=== PATIENT | male | born 1965 | race Caucasian/White ===

== ENCOUNTER → 2018-07-12 | Outpatient (CLI) | payer MEDICARE, OTHER ==
[~2018-07-12] MED LIST: LISI2.5T2 PO; LITH300C3 PO; VENL-193 PO; ZOLP10TA7 PO
== END | disposition home or self-care (01) ==
LOC: LABMN 11:35
DX: F25.0 Schizoaffective disorder, bipolar type (principal)

== ENCOUNTER 2019-11-21 14:25 | Emergency (ER) | payer MEDICARE, OTHER ==
[~2019-11-21] VITALS: Ht 185.4 cm; Wt 122.7 kg
[~2019-11-21 14:25] MED LIST changes: +AMLO-257 PO; +ARIP15TA2 PO; +BACI28.42 TP; +BENZ1TAB10 PO; +CARB-188 AU; +DIPH25CA85 PO; +FURO20 PO; +GABA-1181 PO; +LISI-662 PO; -LISI2.5T2 PO; -LITH300C3 PO; +POTA20TA83 PO; +PROP10TA73 PO; -VENL-193 PO; -ZOLP10TA7 PO
[2019-11-21 15:22] LABS: EOSINOPHILS % (AUTO) 0.4 % (1.0-6.0); HEMATOCRIT 42.1 % (41-53); HEMOGLOBIN 13.9 g/dL (13.5-17.5); LYMPHOCYTES # (AUTO) 2.9 K/uL (1.0-4.8); LYMPHOCYTES % (AUTO) 50.7 % (22.0-44.0); MEAN CORPUSCULAR HEMOGLOBIN 29.3 pg (26.0-34.0); MEAN CORPUSCULAR HGB CONC 33.1 G/dL (31.0-37.0); MEAN CORPUSCULAR VOLUME 89 fL (80-100); MONOCYTES # (AUTO) 0.3 K/uL (0.1-1.0); MONOCYTES % (AUTO) 5.8 % (2.0-9.0); NEUTROPHILS # (AUTO) 2.4 K/uL (1.8-7.7); NEUTROPHILS % (AUTO) 42.1 % (40.0-70.0); PLATELET COUNT (AUTO) 419 K/uL (150-450); RED BLOOD CELL COUNT(AUTO) 4.75 MIL/uL (4.50-5.90); RED CELL DISTRIBUTION WIDTH 17.6 % (11.5-14.5)
[2019-11-21 15:38] LABS: ANION GAP 11 mmol/L (8-16); CALCIUM, TOTAL 8.8 mg/dL (8.8-10.5); CARBON DIOXIDE 26 mmol/L (22-29); CHLORIDE 101 mmol/L (98-107); CREATININE 0.94 mg/dL (0.60-1.30); GLOMERULAR FILTR. RATE CALC > 60 mL/min (>60); GLUCOSE,RANDOM 110 mg/dL (70-110); POTASSIUM 3.5 mmol/L (3.5-5.1); SODIUM SERUM 138 mmol/L (136-145); UREA NITROGEN, BLOOD 15 mg/dL (7-18)
[2019-11-21 15:41] LABS: ALANINE AMINOTRANSFERASE 32 U/L (12-78); ALBUMIN 3.9 g/dL (3.4-5.0); ALKALINE PHOSPHATASE 85 U/L (46-116); ASPARTATE AMINOTRANSFERASE 24 U/L (15-37); BILIRUBIN,TOTAL 0.3 mg/dL (0.1-1.0); TOTAL PROTEIN, SERUM 8.4 g/dL (6.4-8.2)
[2019-11-21 16:58] LABS: AMPHET/METH SCREEN,URINE NEGATIVE (NEGATIVE); BARBITURATE SCREEN, URINE NEGATIVE (NEGATIVE); BENZODIAZEPINES SCREEN,URINE NEGATIVE (NEGATIVE); CANNABINOID SCREEN,URINE NEGATIVE (NEGATIVE); COCAINE SCREEN,URINE NEGATIVE (NEGATIVE); METHADONE SCREEN, URINE NEGATIVE (NEGATIVE); OPIATE SCREEN,URINE NEGATIVE (NEGATIVE); PHENCYCLIDINE SCREEN,URINE NEGATIVE (NEGATIVE)
[2019-11-21] MEDS ORDERED: IBUPROFEN 600 MG TABLET PO ONE (18:45)
[2019-11-21] MEDS ORDERED: LORazepam 1 MG TABLET PO ONE (18:45)
[2019-11-21 18:51] VITALS: BP 143/83
== END 2019-11-21 19:17 | disposition home or self-care (01) ==
LOC: EMS 14:28
DX: F32.9 Major depressive disorder, single episode, unspecified (principal); F10.129 Alcohol abuse with intoxication, unspecified; F17.210 Nicotine dependence, cigarettes, uncomplicated; Z88.8 Allergy status to other drugs, medicaments and biological substances; Z79.899 Other long term (current) drug therapy; Y90.8 Blood alcohol level of 240 mg/100 ml or more
CPT/HCPCS: 36415; 80053; 80307; 85025; 99284; G0480

== ENCOUNTER 2020-11-01 11:00 | Inpatient (IN) | payer MEDICARE, MEDICAID ==
[~2020-11-01] VITALS: Ht 185.4 cm; Wt 129.0 kg
[~2020-11-01 11:00] MED LIST changes: -ARIP15TA2 PO; +ARIP15TA27 PO; -BACI28.42 TP; +BACI28OI28 TP; -LISI-662 PO; +LISI-894 PO
[2020-11-01] MEDS ORDERED: LORazepam 1 MG TABLET PO ONE (12:00)
[2020-11-01] MEDS ORDERED: ONDANSETRON HCL 4 MG TABLET PO ONE (12:15)
[2020-11-01 13:03] LABS: BASOPHILS % (AUTO) 0.6 % (0.0-2.0); EOSINOPHILS % (AUTO) 3.7 % (1.0-6.0); LYMPHOCYTES # (AUTO) 1.6 K/uL (1.0-4.8); MEAN CORPUSCULAR HEMOGLOBIN 29.8 pg (26.0-34.0); MEAN CORPUSCULAR HGB CONC 33.2 G/dL (31.0-37.0); MEAN CORPUSCULAR VOLUME 90 fL (80-100); MONOCYTES # (AUTO) 0.5 K/uL (0.1-1.0); MONOCYTES % (AUTO) 10.3 % (2.0-9.0); NEUTROPHILS # (AUTO) 2.4 K/uL (1.8-7.7); NEUTROPHILS % (AUTO) 51.4 % (40.0-70.0); PLATELET COUNT (AUTO) 243 K/uL (150-450); RED BLOOD CELL COUNT(AUTO) 5.02 MIL/uL (4.50-5.90)
[2020-11-01 13:20] LABS: ALANINE AMINOTRANSFERASE 48 U/L (12-78); ALBUMIN 3.8 g/dL (3.4-5.0); ALKALINE PHOSPHATASE 140 U/L (46-116); ANION GAP 13 mmol/L (8-16); ASPARTATE AMINOTRANSFERASE 47 U/L (15-37); BILIRUBIN,TOTAL 0.5 mg/dL (0.1-1.0); CALCIUM, TOTAL 8.7 mg/dL (8.8-10.5); CARBON DIOXIDE 26 mmol/L (22-29); CHLORIDE 105 mmol/L (98-107); GLOMERULAR FILTR. RATE CALC > 60 mL/min (>60); GLUCOSE,RANDOM 155 mg/dL (70-110); SODIUM SERUM 144 mmol/L (136-145); TOTAL PROTEIN, SERUM 8.5 g/dL (6.4-8.2); UREA NITROGEN, BLOOD 10 mg/dL (7-18)
[2020-11-01 13:29] LABS: GLUCOMETER DEV NAME(LOC) ERT.5; GLUCOSE,POINT OF CARE 108 MG/DL (70-110)
[2020-11-01 13:29] LABS: POTASSIUM 2.8 mmol/L (3.5-5.1)
[2020-11-01] MEDS ORDERED: LORazepam 2 MG TABLET PO ONE (13:45)
[2020-11-01] MEDS ORDERED: POTASSIUM CHLORIDE 20 MEQ ER TABLET PO ONE ×2 (13:45→21:00)
[2020-11-01 14:06] LABS: AMPHET/METH SCREEN,URINE NEGATIVE (NEGATIVE); BARBITURATE SCREEN, URINE NEGATIVE (NEGATIVE); BENZODIAZEPINES SCREEN,URINE NEGATIVE (NEGATIVE); CANNABINOID SCREEN,URINE NEGATIVE (NEGATIVE); COCAINE SCREEN,URINE NEGATIVE (NEGATIVE); METHADONE SCREEN, URINE NEGATIVE (NEGATIVE); OPIATE SCREEN,URINE NEGATIVE (NEGATIVE); PHENCYCLIDINE SCREEN,URINE NEGATIVE (NEGATIVE)
[2020-11-01 14:32] LABS: COVID AG,FIA SOURCE NASOPHARYNGEAL
[2020-11-01] MEDS: HALOPERIDOL 5 MG TABLET PO PRN (17:35)
[2020-11-01] MEDS: LORazepam 2 MG TABLET PO PRN (18:45)
[2020-11-01 20:10] VITALS: BP 200/100
[2020-11-01] MEDS ORDERED: CloNIDine HCL 0.1 MG TABLET PO PRN (20:45)
[2020-11-01] MEDS ORDERED: LISINOPRIL 20 MG TABLET PO ONE (21:00)
[2020-11-01 21:14] VITALS: BP 160/100
[2020-11-01] MEDS ORDERED: ACETAMINOPHEN 325 MG TABLET PO PRN (21:45)
[2020-11-01] MEDS ORDERED: -PHARMACY VACCINE NOTE- MISC ONE (22:00)
[2020-11-02] VITALS (7 sets, daily range): BP systolic 130–208; BP diastolic 61–126
[2020-11-02] MEDS: LORazepam 2 MG TABLET PO PRN ×2 (01:28→16:26)
[2020-11-02] MEDS ORDERED: MAG HYDROX/AL HYDROX/SIMETH ES 30 ML SUSPENSION UDCUP PO PRN (06:30)
[2020-11-02] MEDS ORDERED: ALBUTEROL SULFATE HFA 90 MCG/PUFF 8 GM INHALER IH PRN (06:30)
[2020-11-02] MEDS ORDERED: GuaiFENesin/D-METHORPHAN [SUGAR-FREE] 200-20MG/10 ML SYRUP UDCUP PO PRN (06:30)
[2020-11-02] MEDS ORDERED: NICOTINE 14 MG/24 HOUR PATCH TD PRN (06:30)
[2020-11-02] MEDS ORDERED: ONDANSETRON HCL 4 MG TABLET PO PRN (06:30)
[2020-11-02] MEDS ORDERED: MAGNESIUM HYDROXIDE SUSPENSION 30 ML UDCUP PO PRN (06:30)
[2020-11-02] MEDS ORDERED: LOPERAMIDE HCL 2 MG CAPSULE PO PRN (06:30)
[2020-11-02] MEDS ORDERED: ACETAMINOPHEN 325 MG TABLET PO PRN (06:30)
[2020-11-02] MEDS ORDERED: DOCUSATE SODIUM 100 MG CAPSULE PO PRN (06:30)
[2020-11-02] MEDS ORDERED: PETROLATUM,WHITE 28 GM JELLY TP PRN (06:30)
[2020-11-02] MEDS ORDERED: IBUPROFEN 400 MG TABLET PO PRN (06:30)
[2020-11-02 07:12] LABS: HEMOGLOBIN A1C 5.6 % (3.8-5.6)
[2020-11-02 07:17] LABS: CHOL/HDL RATIO 4.7 (4.2-7.3); POTASSIUM 3.4 mmol/L (3.5-5.1)
[2020-11-02] MEDS: LISINOPRIL 20 MG TABLET PO SCH (08:42)
[2020-11-02] MEDS: GABAPENTIN 300 MG CAPSULE PO SCH (16:10)
[2020-11-02] MEDS: PROPRANOLOL HCL 10 MG TABLET PO SCH (16:10)
[2020-11-02] MEDS: ZOLPIDEM TARTRATE 10 MG TABLET PO PRN (20:51)
[2020-11-02] MEDS: CloNIDine HCL 0.1 MG TABLET PO PRN (23:44)
[2020-11-03] MEDS: LORazepam 2 MG TABLET PO PRN ×3 (00:48→16:10)
[2020-11-03 02:00] VITALS: BP 160/90
[2020-11-03 08:00] VITALS: BP 170/101
[2020-11-03] MEDS ORDERED: POTASSIUM CHLORIDE 20 MEQ ER TABLET PO ONE (08:00)
[2020-11-03] MEDS: LISINOPRIL 20 MG TABLET PO SCH (08:20)
[2020-11-03] MEDS: GABAPENTIN 300 MG CAPSULE PO SCH ×3 (08:20→16:10)
[2020-11-03] MEDS: PROPRANOLOL HCL 10 MG TABLET PO SCH ×2 (08:20→16:10)
[2020-11-03] MEDS: FUROSEMIDE 20 MG TABLET PO SCH (08:22)
[2020-11-03] MEDS ORDERED: TraMADol HCL 50 MG TABLET PO PRN (08:30)
[2020-11-03] MEDS: BENZTROPINE MESYLATE 1 MG TABLET PO SCH (08:36)
[2020-11-03] MEDS: ARIPiprazole 15 MG TABLET PO SCH (08:36)
[2020-11-03] MEDS: DiphenhydrAMINE HCL 25 MG CAPSULE PO SCH (08:36)
[2020-11-03] MEDS: ACETAMINOPHEN 325 MG TABLET PO PRN (08:41)
[2020-11-03] MEDS ORDERED: LISINOPRIL 20 MG TABLET PO ONE (09:00)
[2020-11-03 10:00] VITALS: BP 164/97
[2020-11-03] MEDS: FLUTICASONE PROPIONATE 50 MCG/SPRAY 16 GM NASAL SPRAY NASAL SCH ×2 (13:05→16:10)
[2020-11-03 16:13] VITALS: BP 139/63
[2020-11-03] MEDS: HydrOXYzine PAMOATE 50 MG CAPSULE PO SCH (20:05)
[2020-11-03 20:21] VITALS: BP 135/72
[2020-11-03] MEDS: TraMADol HCL 50 MG TABLET PO PRN (20:24)
[2020-11-03] MEDS: ZOLPIDEM TARTRATE 10 MG TABLET PO PRN (21:35)
[2020-11-03] MEDS: CloNIDine HCL 0.1 MG TABLET PO PRN (23:59)
[2020-11-04] MEDS: ACETAMINOPHEN 325 MG TABLET PO PRN (00:02)
[2020-11-04 00:22] VITALS: BP 187/118
[2020-11-04] MEDS: LORazepam 2 MG TABLET PO PRN ×2 (00:38→08:08)
[2020-11-04 02:00] VITALS: BP 168/91
[2020-11-04] MEDS: HALOPERIDOL 5 MG TABLET PO PRN (03:07)
[2020-11-04 06:49] VITALS: BP 153/76
[2020-11-04] MEDS: TraMADol HCL 50 MG TABLET PO PRN (06:52)
[2020-11-04] MEDS: PROPRANOLOL HCL 10 MG TABLET PO SCH (08:07)
[2020-11-04] MEDS: FUROSEMIDE 20 MG TABLET PO SCH (08:07)
[2020-11-04] MEDS: HydrOXYzine PAMOATE 50 MG CAPSULE PO SCH (08:07)
[2020-11-04] MEDS: FLUTICASONE PROPIONATE 50 MCG/SPRAY 16 GM NASAL SPRAY NASAL SCH (08:07)
[2020-11-04] MEDS: ARIPiprazole 15 MG TABLET PO SCH (08:07)
[2020-11-04] MEDS: GABAPENTIN 300 MG CAPSULE PO SCH (08:08)
[2020-11-04] MEDS: DiphenhydrAMINE HCL 25 MG CAPSULE PO SCH (08:08)
[2020-11-04] MEDS: BENZTROPINE MESYLATE 1 MG TABLET PO SCH (08:09)
[2020-11-04] MEDS ORDERED: LISINOPRIL 20 MG TABLET PO SCH (09:00)
[2020-11-04] MEDS ORDERED: ATOMOXETINE HCL 40 MG CAPSULE PO SCH (09:00)
[2020-11-04] MEDS ORDERED: POTASSIUM CHLORIDE 10 MEQ ER TABLET PO SCH (09:15)
[2020-11-04] MEDS ORDERED: POTASSIUM CHLORIDE 8 MEQ ER TABLET PO SCH (09:34)
[2020-11-04] MEDS ORDERED: ATOM40CA9 PO (09:47)
[2020-11-04] MEDS ORDERED: HYDR50CA9 PO (09:49)
[2020-11-04] MEDS ORDERED: POTA-92 PO (09:50)
== END 2020-11-04 10:05 | disposition home or self-care (01) | DRG 885 ==
LOC: EMS 11:00 → B2X 17:25
DX: F31.4 Bipolar disorder, current episode depressed, severe, without psychotic features (principal); I11.0 Hypertensive heart disease with heart failure; T51.0X1A Toxic effect of ethanol, accidental (unintentional), initial encounter; R45.851 Suicidal ideations; E11.9 Type 2 diabetes mellitus without complications; E87.6 Hypokalemia; F10.20 Alcohol dependence, uncomplicated; F20.9 Schizophrenia, unspecified; F41.9 Anxiety disorder, unspecified; I50.9 Heart failure, unspecified; J45.909 Unspecified asthma, uncomplicated; F90.9 Attention-deficit hyperactivity disorder, unspecified type; F98.8 Other specified behavioral and emotional disorders with onset usually occurring in childhood and adolescence; Y90.4 Blood alcohol level of 80-99 mg/100 ml; Z79.899 Other long term (current) drug therapy; Z87.891 Personal history of nicotine dependence; Z91.19 Patient's noncompliance with other medical treatment and regimen; Y92.89 Other specified places as the place of occurrence of the external cause; Z88.8 Allergy status to other drugs, medicaments and biological substances; Z20.822 Contact with and (suspected) exposure to COVID-19
CPT/HCPCS: 80053; 80061; 82962; 83036; 84132; 85025; 99285; G0480; J3535; Q0162

== ENCOUNTER 2024-11-17 12:06 | Inpatient (IN) | payer MEDICARE, OTHER ==
[~2024-11-17] VITALS: Ht 180.3 cm; Wt 92.4 kg
[~2024-11-17 12:06] MED LIST changes: -AMLO-257 PO; -ARIP15TA27 PO; +ATOM40CA9 PO; -BACI28OI28 TP; -BENZ1TAB10 PO; -CARB-188 AU; -FURO20 PO; +FURO20TA5 PO; +HYDR50CA7 PO; +POTA-92 PO; -POTA20TA83 PO
[2024-11-17] MEDS ORDERED: SODIUM CHLORIDE 0.9% 1,900 ML IV ONE (13:00)
[2024-11-17] MEDS ORDERED: SODIUM CHLORIDE 0.9% 1,000 ML IV ONE (13:00)
[2024-11-17 13:18] LABS: PLATELET COUNT (AUTO) 486 K/uL (150-450); RED BLOOD CELL COUNT(AUTO) 3.64 MIL/uL (4.50-5.90); RED CELL DISTRIBUTION WIDTH 13.4 % (11.5-14.5); WHITE BLOOD COUNT (AUTO) 14.7 K/uL (4.5-11.0)
[2024-11-17 13:30] LABS: CALCIUM, TOTAL 8.6 mg/dL (8.8-10.5); CREATININE 0.49 mg/dL (0.60-1.30); GLOMERULAR FILTR. RATE CALC > 60 mL/min (>60); GLUCOSE,RANDOM 97 mg/dL (70-110); SODIUM SERUM 139 mmol/L (136-145); UREA NITROGEN, BLOOD 11 mg/dL (7-18)
[2024-11-17 13:33] LABS: ASPARTATE AMINOTRANSFERASE 25 U/L (15-37); CREATINE KINASE, TOTAL ONLY 88 U/L (39-308); TOTAL PROTEIN, SERUM 7.5 g/dL (6.4-8.2)
[2024-11-17 13:37] LABS: LACTIC ACID 0.8 mmol/L (0.4-2.0)
[2024-11-17 13:40] LABS: TROPONIN I-HIGH SENSITIVITY 8 ng/L (<76)
[2024-11-17] MEDS ORDERED: MANNITOL 20%-100 GM/500 ML 500 ML IV ONE (14:45)
[2024-11-17] MEDS ORDERED: ROCURONIUM BROMIDE 10 MG/ML 5 ML VIAL ONE (14:48)
[2024-11-17] MEDS ORDERED: ETOMIDATE 2 MG/ML 10 ML VIAL ONE (14:48)
[2024-11-17 15:00] VITALS: PULSE 82; RESP 16; O2SAT 99
[2024-11-17] MEDS: PROPOFOL 1000 MG/ISO-OSM 100 ML IV PRN (15:23)
[2024-11-17] MEDS: FentaNYL CIT 1000MCG/0.9% NACL 100 ML IV PRN (15:24)
[2024-11-17 15:31] VITALS: PULSE 95; RESP 16; O2SAT 100
[2024-11-17] MEDS: DEXAMETHASONE SOD PHOS 4 MG/ML 5 ML VIAL IVP ONE (15:34)
[2024-11-17] MEDS: SODIUM CHLORIDE IV ONE (15:42)
[2024-11-17] MEDS: CefTRIAXone 1 GM/DEXTROSE 50 ML IV ONE (16:16)
[2024-11-17] MEDS: MIDAZOLAM HCL 100 MG in SODIUM CHLORIDE 0.9% 180 ML IV PRN (17:01)
[2024-11-17 17:08] LABS: ABG BASE EXCESS 2.8 mmol/L (-2.0-3.0); ABG CARBOXYHEMOGLOBIN 0.1 % (0.5-1.5); ABG HCO3 26.9 mmol/L (21.0-28.0); ABG METHEMOGLOBIN 1.2 % (0.0-1.5); ABG OXYGEN CONTENT 12.6 mL/dL (15.0-23.0); ABG OXYGEN SATURATION 99.7 % (94.0-98.0); ABG OXYHEMOGLOBIN 98.4 % (94.0-98.0); ABG PCO2 36 mmHg (32.0-48.0); ABG PH 7.477 (7.350-7.450); ABG TOTAL HEMOGLOBIN 8.4 G/dL (13.5-17.5); FRACTIONATED INSPIRED OXYGEN 100.0 % (21-100.0); SOURCE, BLOOD GAS ARTERIAL; TEMPERATURE, FAHRENHEIT, BG 99.0 FAHREN (96.0-98.6)
[2024-11-17 17:09] LABS: ALLEN TEST, BLOOD GAS POS; O2 DEVICE,BLOOD GAS VENTILATOR (ROOM AIR); PO2, ARTERIAL BG 354.2 mmHg (83.0-108.0); SITE, BLOOD GAS LFT BRACHIAL
[2024-11-17 17:10] LABS: PATIENT RATE, BG 16.0 min.; PEEP,BG 5 cm H2O; SET RATE, BG 16.0 min.; VT, ABG 580 ml
[2024-11-17] MEDS: MANNITOL IV ONE (17:57)
[2024-11-17 18:05] LABS: APPEARANCE,URINE CLEAR (CLEAR); GLUCOSE, URINE (UA) NEGATIVE (NEGATIVE); LEUKOCYTE ESTERASE ,URINE NEGATIVE (NEGATIVE); NITRATE,URINE NEGATIVE (NEGATIVE); OCCULT BLOOD,URINE NEGATIVE (NEGATIVE); PH,URINE DRUG SCREEN 7.5 (5.0-8.0); SPECIFIC GRAVITIY, URINE 1.011 (1.003-1.030)
[2024-11-17 18:12] LABS: ALCOHOL, URINE DRUG SCREEN NEGATIVE (NEGATIVE); AMPHET/METH SCREEN,URINE NEGATIVE (NEGATIVE); BARBITURATE SCREEN, URINE NEGATIVE (NEGATIVE); CANNABINOID SCREEN,URINE NEGATIVE (NEGATIVE); COCAINE SCREEN,URINE NEGATIVE (NEGATIVE); METHADONE SCREEN, URINE NEGATIVE (NEGATIVE)
[2024-11-17] MEDS ORDERED: GADOTERATE MEGLUMINE 10 MMOL/20 ML VIAL IVP ONE (18:25)
[2024-11-17] MEDS ORDERED: NOREPINEPHRINE 8 MG/0.9 % NACL 250 ML IV ONE (18:43)
[2024-11-17] MEDS: NOREPINEPHRINE 8 MG/0.9 % NACL 250 ML IV PRN (18:53)
[2024-11-17 18:55] VITALS: PULSE 60; RESP 16; O2SAT 100
[2024-11-17] MEDS: DOPamine 400MG/D5W[STANDARD] 250 ML IV PRN (19:14)
[2024-11-17] MEDS ORDERED: MAGNESIUM HYDROXIDE SUSPENSION 30 ML UDCUP PO PRN (21:00)
[2024-11-17] MEDS ORDERED: ALBUTEROL SULFATE 2.5 MG/0.5 ML NEB SOLUTION NEB PRN (21:00)
[2024-11-17] MEDS ORDERED: IPRATROPIUM BROMIDE 0.5 MG/2.5 ML NEB SOLUTION NEB PRN (21:00)
[2024-11-17] MEDS ORDERED: BISACODYL 10 MG RECTAL RECTAL SUPPOSITORY PR PRN (21:00)
[2024-11-17] MEDS ORDERED: ZOLPIDEM TARTRATE 5 MG TABLET PO PRN (21:00)
[2024-11-17] MEDS ORDERED: ACETAMINOPHEN 325 MG TABLET PO PRN (21:00)
[2024-11-17] MEDS ORDERED: ONDANSETRON HCL 4 MG/2 ML VIAL IVP PRN (21:00)
[2024-11-17] MEDS: DOCUSATE SODIUM 100 MG CAPSULE PO SCH (21:00)
[2024-11-17] MEDS: PIPERACILLIN/TAZO 3.375 GM/D5W 50 ML IV SCH (21:36)
[2024-11-17 22:22] VITALS: PULSE 67; RESP 16; O2SAT 100
[2024-11-17 22:46] LABS: GLUCOMETER DEV NAME(LOC) ER.7; GLUCOSE,POINT OF CARE 150 MG/DL (70-110)
[2024-11-17 23:30] VITALS: BP 118/50; PULSE 53; RESP 16; TEMP 97.5; O2SAT 100
[2024-11-17] MEDS ORDERED: SODIUM CHLORIDE 0.9% 250 ML IV ONE (23:52)
[2024-11-18] VITALS (14 sets, daily range): BP systolic 115–149; BP diastolic 67–79; PULSE 45–99; RESP 16; TEMP 97.1–98.2; O2SAT 99–100
[2024-11-18] MEDS: HEPARIN SODIUM,PORCINE 5,000 UNITS/ML VIAL SQ SCH (00:34)
[2024-11-18] MEDS ORDERED: POTASSIUM CHLORIDE 20 MEQ ER TABLET PO PRN (00:45)
[2024-11-18] MEDS: DEXAMETHASONE SOD PHOS 4 MG/ML VIAL IVP SCH (01:12)
[2024-11-18] MEDS: POTASSIUM CHL 10 MEQ/WATER 50 ML IV PRN (01:12)
[2024-11-18] MEDS ORDERED: FentaNYL CIT 1000MCG/0.9% NACL 100 ML IV ONE (05:32)
[2024-11-18 05:45] LABS: GLUCOMETER DEV NAME(LOC) ICUN.6; GLUCOSE,POINT OF CARE 139 MG/DL (70-110)
[2024-11-18] MEDS: FentaNYL CIT 1000MCG/0.9% NACL 100 ML IV PRN (05:46)
[2024-11-18 06:13] LABS: PLATELET COUNT (AUTO) 552 K/uL (150-450); RED BLOOD CELL COUNT(AUTO) 3.48 MIL/uL (4.50-5.90); RED CELL DISTRIBUTION WIDTH 13.3 % (11.5-14.5); WHITE BLOOD COUNT (AUTO) 9.5 K/uL (4.5-11.0)
[2024-11-18 06:31] LABS: CALCIUM, TOTAL 8.7 mg/dL (8.8-10.5); CREATININE 0.62 mg/dL (0.60-1.30); GLOMERULAR FILTR. RATE CALC > 60 mL/min (>60); GLUCOSE,RANDOM 133 mg/dL (70-110); SODIUM SERUM 139 mmol/L (136-145); UREA NITROGEN, BLOOD 10 mg/dL (7-18)
[2024-11-18 06:43] LABS: PHOSPHORUS 3.5 mg/dL (2.5-4.9)
[2024-11-18 06:45] LABS: GLUCOMETER DEV NAME(LOC) ICU.S7; GLUCOSE,POINT OF CARE 153 MG/DL (70-110)
[2024-11-18] MEDS: PANTOPRAZOLE SODIUM 40 MG/VIAL IVP SCH (08:12)
[2024-11-18] MEDS: DOPamine 400MG/D5W[STANDARD] 250 ML IV PRN (10:10)
[2024-11-18] MEDS: PROPOFOL 1000 MG/ISO-OSM 100 ML IV PRN (15:01)
[2024-11-19] VITALS (15 sets, daily range): BP systolic 102–136; BP diastolic 61–73; PULSE 48–58; RESP 16; TEMP 94.4–97.5; O2SAT 98–100
[2024-11-19 05:58] LABS: PLATELET COUNT (AUTO) 433 K/uL (150-450); RED BLOOD CELL COUNT(AUTO) 3.51 MIL/uL (4.50-5.90); RED CELL DISTRIBUTION WIDTH 13.5 % (11.5-14.5); WHITE BLOOD COUNT (AUTO) 11.0 K/uL (4.5-11.0)
[2024-11-19 06:05] LABS: CALCIUM, TOTAL 8.7 mg/dL (8.8-10.5); CREATININE 0.86 mg/dL (0.60-1.30); GLOMERULAR FILTR. RATE CALC > 60 mL/min (>60); GLUCOSE,RANDOM 110 mg/dL (70-110); SODIUM SERUM 137 mmol/L (136-145); UREA NITROGEN, BLOOD 27 mg/dL (7-18)
[2024-11-19 06:07] LABS: PHOSPHORUS 4.2 mg/dL (2.5-4.9)
[2024-11-19] MEDS: MIDAZOLAM HCL 100 MG in SODIUM CHLORIDE 0.9% 180 ML IV PRN (07:43)
[2024-11-19] MEDS ORDERED: DEXTROSE 50%-WATER 25 GM/50 ML SYRINGE IVP PRN (08:15)
[2024-11-19 12:01] LABS: GLUCOMETER DEV NAME(LOC) ICU.S7; GLUCOSE,POINT OF CARE 100 MG/DL (70-110)
[2024-11-19] MEDS ORDERED: GADOTERATE MEGLUMINE 10 MMOL/20 ML VIAL IVP ONE (15:24)
[2024-11-20] VITALS (8 sets, daily range): BP systolic 122–165; BP diastolic 45–84; PULSE 47–88; RESP 12–19; TEMP 97.1–97.8; O2SAT 95–100
[2024-11-20 00:01] LABS: GLUCOMETER DEV NAME(LOC) ICU.S7; GLUCOSE,POINT OF CARE 111 MG/DL (70-110)
[2024-11-20 06:01] LABS: PLATELET COUNT (AUTO) 438 K/uL (150-450); RED BLOOD CELL COUNT(AUTO) 3.51 MIL/uL (4.50-5.90); RED CELL DISTRIBUTION WIDTH 13.5 % (11.5-14.5); WHITE BLOOD COUNT (AUTO) 10.6 K/uL (4.5-11.0)
[2024-11-20 06:06] LABS: GLUCOMETER DEV NAME(LOC) ICU.S7; GLUCOSE,POINT OF CARE 108 MG/DL (70-110)
[2024-11-20 06:10] LABS: CALCIUM, TOTAL 8.7 mg/dL (8.8-10.5); CREATININE 0.53 mg/dL (0.60-1.30); GLOMERULAR FILTR. RATE CALC > 60 mL/min (>60); GLUCOSE,RANDOM 105 mg/dL (70-110); SODIUM SERUM 139 mmol/L (136-145); UREA NITROGEN, BLOOD 34 mg/dL (7-18)
[2024-11-20 06:48] LABS: ABG BASE EXCESS 3.6 mmol/L (-2.0-3.0); ABG CARBOXYHEMOGLOBIN 0.3 % (0.5-1.5); ABG HCO3 27.7 mmol/L (21.0-28.0); ABG METHEMOGLOBIN 0.3 % (0.0-1.5); ABG OXYGEN CONTENT 14.3 mL/dL (15.0-23.0); ABG OXYGEN SATURATION 98.4 % (94.0-98.0); ABG OXYHEMOGLOBIN 97.8 % (94.0-98.0); ABG PCO2 36 mmHg (32.0-48.0); ABG PH 7.496 (7.350-7.450); ABG TOTAL HEMOGLOBIN 10.2 G/dL (13.5-17.5); FRACTIONATED INSPIRED OXYGEN 32.0 % (21-100.0); PO2, ARTERIAL BG 119.0 mmHg (83.0-108.0); SOURCE, BLOOD GAS ARTERIAL; TEMPERATURE, FAHRENHEIT, BG 97.5 FAHREN (96.0-98.6)
[2024-11-20 06:49] LABS: ABG A-A DIFF O2 68.0 mmHg (10-20.0); ALLEN TEST, BLOOD GAS Positive; FLOW, BLOOD GAS 3.00 L/min (0.00-15.00); O2 DEVICE,BLOOD GAS CANNULA (ROOM AIR); PATIENT RATE, BG 14.0 min.; SITE, BLOOD GAS LFT RADIAL
[2024-11-20] MEDS: DEXMEDETOMIDINE 400 MCG/NS 100 ML IV PRN (09:55)
[2024-11-20 12:46] LABS: GLUCOMETER DEV NAME(LOC) ICU.S7; GLUCOSE,POINT OF CARE 116 MG/DL (70-110)
[2024-11-20] MEDS: LORazepam 2 MG/ML VIAL IVP PRN (14:16)
[2024-11-20] MEDS: LORazepam 2 MG/ML VIAL IVP ONE (16:41)
[2024-11-20] MEDS: METOPROLOL TARTRATE 5 MG/5 ML VIAL IVP ONE (17:40)
[2024-11-20 18:51] LABS: GLUCOMETER DEV NAME(LOC) ICU.S7; GLUCOSE,POINT OF CARE 110 MG/DL (70-110)
[2024-11-20] MEDS ORDERED: SODIUM CHLORIDE 0.9% 500 ML IV ONE (21:17)
[2024-11-21] VITALS: BP 175/85; PULSE 75; PULSE 84; RESP 17; TEMP 98.3; O2SAT 95
[2024-11-21 00:21] LABS: GLUCOMETER DEV NAME(LOC) ICUN.6; GLUCOSE,POINT OF CARE 109 MG/DL (70-110)
[2024-11-21] MEDS: MORPHINE SULFATE 4 MG/ML SYRINGE IVP PRN (01:47)
[2024-11-21 04:00] VITALS: BP 156/85; PULSE 68; PULSE 85; RESP 15; TEMP 97.3; O2SAT 99
[2024-11-21 06:21] LABS: GLUCOMETER DEV NAME(LOC) ICU.S7; GLUCOSE,POINT OF CARE 103 MG/DL (70-110)
[2024-11-21 08:00] VITALS: BP 197/105; PULSE 89; RESP 9; TEMP 98.2; O2SAT 98
[2024-11-21 11:45] LABS: GLUCOMETER DEV NAME(LOC) ICUN.6; GLUCOSE,POINT OF CARE 92 MG/DL (70-110)
[2024-11-21 12:00] VITALS: BP 155/90; PULSE 101; RESP 16; TEMP 98.7; O2SAT 98
[2024-11-21 16:00] VITALS: BP 172/108; PULSE 97; RESP 19; TEMP 98.6; O2SAT 98
[2024-11-21] MEDS: METOPROLOL TARTRATE 5 MG/5 ML VIAL IVP SCH (16:14)
[2024-11-21 20:00] VITALS: BP 156/85; PULSE 89; RESP 25; TEMP 98.6; O2SAT 96
[2024-11-22] VITALS (9 sets, daily range): BP systolic 123–165; BP diastolic 56–95; PULSE 60–97; RESP 11–23; TEMP 97.3–98.8; O2SAT 98–100
[2024-11-22 00:16] LABS: GLUCOMETER DEV NAME(LOC) ICU.S7; GLUCOSE,POINT OF CARE 96 MG/DL (70-110)
[2024-11-22 05:56] LABS: GLUCOMETER DEV NAME(LOC) ICU.S7; GLUCOSE,POINT OF CARE 110 MG/DL (70-110)
[2024-11-22 06:00] LABS: PLATELET COUNT (AUTO) 515 K/uL (150-450); RED BLOOD CELL COUNT(AUTO) 4.17 MIL/uL (4.50-5.90); RED CELL DISTRIBUTION WIDTH 13.6 % (11.5-14.5); WHITE BLOOD COUNT (AUTO) 13.3 K/uL (4.5-11.0)
[2024-11-22 06:12] LABS: CALCIUM, TOTAL 9.1 mg/dL (8.8-10.5); CREATININE 0.47 mg/dL (0.60-1.30); GLOMERULAR FILTR. RATE CALC > 60 mL/min (>60); GLUCOSE,RANDOM 101 mg/dL (70-110); SODIUM SERUM 138 mmol/L (136-145); UREA NITROGEN, BLOOD 21 mg/dL (7-18)
[2024-11-22] MEDS: HYDROCODONE/ACETAMINOPHEN 5-325 MG TABLET PO PRN (12:10)
[2024-11-22 12:51] LABS: GLUCOMETER DEV NAME(LOC) ICU.S7; GLUCOSE,POINT OF CARE 99 MG/DL (70-110)
[2024-11-22 17:45] LABS: GLUCOMETER DEV NAME(LOC) ICUN.6; GLUCOSE,POINT OF CARE 136 MG/DL (70-110)
[2024-11-22] MEDS ORDERED: SODIUM CHLORIDE 0.9% 500 ML IV ONE (20:53)
[2024-11-22] MEDS: INSULIN LISPRO 100 UNITS/ML SQ PRN (21:10)
[2024-11-22 22:00] LABS: GLUCOMETER DEV NAME(LOC) 5S.1E; GLUCOSE,POINT OF CARE 141 MG/DL (70-110)
[2024-11-23] VITALS (7 sets, daily range): BP systolic 130–150; BP diastolic 78–106; PULSE 73–86; RESP 19–20; TEMP 97.7–98.1; O2SAT 95–99
[2024-11-23 06:30] LABS: GLUCOMETER DEV NAME(LOC) 5S.2D; GLUCOSE,POINT OF CARE 143 MG/DL (70-110)
[2024-11-23 06:30] LABS: GLUCOMETER DEV NAME(LOC) 5S.2D; GLUCOSE,POINT OF CARE 143 MG/DL (70-110)
[2024-11-23 06:43] LABS: PLATELET COUNT (AUTO) 506 K/uL (150-450); RED BLOOD CELL COUNT(AUTO) 4.14 MIL/uL (4.50-5.90); RED CELL DISTRIBUTION WIDTH 13.5 % (11.5-14.5); WHITE BLOOD COUNT (AUTO) 12.9 K/uL (4.5-11.0)
[2024-11-23 06:57] LABS: CALCIUM, TOTAL 8.8 mg/dL (8.8-10.5); CREATININE 0.75 mg/dL (0.60-1.30); GLOMERULAR FILTR. RATE CALC > 60 mL/min (>60); GLUCOSE,RANDOM 121 mg/dL (70-110); SODIUM SERUM 138 mmol/L (136-145); UREA NITROGEN, BLOOD 26 mg/dL (7-18)
[2024-11-23 18:31] LABS: GLUCOMETER DEV NAME(LOC) 5S.2D; GLUCOSE,POINT OF CARE 116 MG/DL (70-110)
[2024-11-24] VITALS (7 sets, daily range): BP systolic 126–152; BP diastolic 70–91; PULSE 54–72; RESP 19–20; TEMP 97.9–98.6; O2SAT 98–100
[2024-11-24 05:26] LABS: GLUCOMETER DEV NAME(LOC) 5S.2D; GLUCOSE,POINT OF CARE 132 MG/DL (70-110)
[2024-11-24 06:50] LABS: GLUCOMETER DEV NAME(LOC) 5S.2D; GLUCOSE,POINT OF CARE 106 MG/DL (70-110)
[2024-11-24 13:27] LABS: GLUCOMETER DEV NAME(LOC) 5S.2D; GLUCOSE,POINT OF CARE 96 MG/DL (70-110)
[2024-11-24 22:26] LABS: GLUCOMETER DEV NAME(LOC) 5S.2D; GLUCOSE,POINT OF CARE 124 MG/DL (70-110)
[2024-11-24 22:26] LABS: GLUCOMETER DEV NAME(LOC) 5S.2D; GLUCOSE,POINT OF CARE 135 MG/DL (70-110)
[2024-11-25 00:15] VITALS: BP 120/62; PULSE 77; RESP 18; TEMP 98.6; O2SAT 97
[2024-11-25 03:56] LABS: GLUCOMETER DEV NAME(LOC) 5S.2D; GLUCOSE,POINT OF CARE 140 MG/DL (70-110)
[2024-11-25 04:30] VITALS: BP 159/66; PULSE 103; RESP 18; O2SAT 96
[2024-11-25 06:56] LABS: PLATELET COUNT (AUTO) 427 K/uL (150-450); RED BLOOD CELL COUNT(AUTO) 4.02 MIL/uL (4.50-5.90); RED CELL DISTRIBUTION WIDTH 13.5 % (11.5-14.5); WHITE BLOOD COUNT (AUTO) 14.8 K/uL (4.5-11.0)
[2024-11-25 07:16] LABS: CALCIUM, TOTAL 8.7 mg/dL (8.8-10.5); CREATININE 0.45 mg/dL (0.60-1.30); GLOMERULAR FILTR. RATE CALC > 60 mL/min (>60); GLUCOSE,RANDOM 110 mg/dL (70-110); SODIUM SERUM 136 mmol/L (136-145); UREA NITROGEN, BLOOD 26 mg/dL (7-18)
[2024-11-25 07:45] VITALS: BP 175/117; PULSE 72; RESP 18; TEMP 97.7; O2SAT 99
[2024-11-25 11:49] VITALS: BP 142/84; PULSE 67; RESP 18; TEMP 97.7; O2SAT 98
[2024-11-25 11:50] LABS: GLUCOMETER DEV NAME(LOC) 5S.2D; GLUCOSE,POINT OF CARE 124 MG/DL (70-110)
[2024-11-25 15:43] VITALS: BP 124/76; PULSE 70; RESP 19; TEMP 98; O2SAT 96
[2024-11-25 17:15] LABS: GLUCOMETER DEV NAME(LOC) 5S.2D; GLUCOSE,POINT OF CARE 102 MG/DL (70-110)
== END 2024-11-25 20:20 | DRG 871 ==
LOC: EMS 12:06 → EDH 18:24 → ICU 23:00 → 5N 11-22 19:10
PROVIDERS: ADMIT Hospitalist; ATTEND Hospitalist
PROC: 0BH17EZ Insertion of Endotracheal Airway into Trachea, Via Natural or Artificial Opening (ICD-10-PCS; principal; 2024-11-17)
PROC: 5A1945Z Respiratory Ventilation, 24-96 Consecutive Hours (ICD-10-PCS; 2024-11-17)
DX: A41.9 Sepsis, unspecified organism (principal); G93.41 Metabolic encephalopathy; G93.6 Cerebral edema; J96.01 Acute respiratory failure with hypoxia; J18.9 Pneumonia, unspecified organism; J69.0 Pneumonitis due to inhalation of food and vomit; C79.31 Secondary malignant neoplasm of brain; C78.00 Secondary malignant neoplasm of unspecified lung; Z59.01 Sheltered homelessness; Z99.11 Dependence on respirator [ventilator] status; R65.20 Severe sepsis without septic shock; Z66 Do not resuscitate; D75.839 Thrombocytosis, unspecified; E11.9 Type 2 diabetes mellitus without complications; E87.6 Hypokalemia; D64.9 Anemia, unspecified; F10.10 Alcohol abuse, uncomplicated; F31.9 Bipolar disorder, unspecified; I10 Essential (primary) hypertension; F20.9 Schizophrenia, unspecified; J45.909 Unspecified asthma, uncomplicated; Y90.8 Blood alcohol level of 240 mg/100 ml or more; F41.9 Anxiety disorder, unspecified; I16.0 Hypertensive urgency; K74.60 Unspecified cirrhosis of liver; R62.7 Adult failure to thrive; Z68.28 Body mass index [BMI] 28.0-28.9, adult; Z85.820 Personal history of malignant melanoma of skin; Z87.891 Personal history of nicotine dependence; Z79.899 Other long term (current) drug therapy; Z91.199 Patient's noncompliance with other medical treatment and regimen due to unspecified reason; Z88.8 Allergy status to other drugs, medicaments and biological substances
CPT/HCPCS: 70450; 70553; 71045; 74176; 80048; 80076; 80307; 81003; 82140; 82550; 82805; 82962; 83605; 83735; 84100; 84145; 84484; 85025; 85610; 85730; 87040; 87081; 92526; 92610; 93005; 93306; 93970; 94002; 94003; 99291; J0360; J0696; J0712; J1100; J1265; J1630; J1644; J2060; J2250; J2270; J2470; J2543; J2704; J3010; J3480; J3490; J7040; J7050; J7060; 36415-L1; 36415-TC